=== PATIENT | female | born 1995 | race African-American/Black ===

== ENCOUNTER 2017-06-18 16:33 | Emergency (ER) | payer OTHER | END 2017-06-18 20:45 | disposition home or self-care (01) | LOC: M ED 16:33 | DX: S93.401A Sprain of unspecified ligament of right ankle, initial encounter (principal); W19.XXXA Unspecified fall, initial encounter; Y92.84 Military training ground as the place of occurrence of the external cause; Y93.89 Activity, other specified | CPT/HCPCS: 73610 ==

== ENCOUNTER 2017-09-07 23:58 | Emergency (ER) | payer OTHER ==
[2017-09-08] MEDS: ONDANSETRON 4MG/2ML VIAL (J2405) IV (00:15)
[2017-09-08] MEDS: MORPHINE 4 MG/ML 1ML VIAL/SYRINGE (J2270) IV (00:15)
[2017-09-08] MEDS: IBUPROFEN 800 MG TAB PO (01:45)
== END 2017-09-08 02:03 | disposition home or self-care (01) ==
LOC: M ED 23:58
DX: S50.11XA Contusion of right forearm, initial encounter (principal); W10.8XXA Fall (on) (from) other stairs and steps, initial encounter; Y92.89 Other specified places as the place of occurrence of the external cause
CPT/HCPCS: J2270

== ENCOUNTER 2018-11-03 22:54 | Emergency (ER) | payer OTHER ==
[~2018-11-03] VITALS: Ht 162.6 cm; Wt 74.5 kg
[~2018-11-03 22:54] MED LIST: IBUP-1114 PO; NAPR-837 PO
[2018-11-04 00:37] VITALS: BP 112/58
--- NOTE | 2018-11-04 00:42 | REP ---
Clinical: Trauma. Technique: AP and lateral views of the right forearm. Findings: No acute fracture or dislocation. Skeletal structures, joint spaces, and surrounding soft tissues are normal. Impression: No acute fracture or dislocation. Electronically Signed by Kev Lovell MD 11/04/2018 12:34 A
== END 2018-11-04 00:39 | disposition home or self-care (01) ==
LOC: M ED 22:54
DX: S50.11XA Contusion of right forearm, initial encounter (principal); W19.XXXA Unspecified fall, initial encounter; Y92.018 Other place in single-family (private) house as the place of occurrence of the external cause; Z91.018 Allergy to other foods